=== PATIENT | female | born 2000 | race Caucasian/White ===

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

== ENCOUNTER 2021-03-07 18:39 | Emergency (ER) | payer MEDICAID ==
[~2021-03-07] VITALS: Ht 154.9 cm; Wt 63.0 kg
[2021-03-07] MEDS ORDERED: IV RINGERS SOLUTION,LACTATED 1,000 ML IV SCH (21:15)
[2021-03-07 21:18] VITALS: BP 134/80
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
[2021-03-07 22:15] LABS: BASO % 0 % (0-3); EOS % 1 % (0-3); HEMATOCRIT 35.3 % (36.0-47.0); HEMOGLOBIN 11.1 g/dL (12.0-15.5); LYMPH # 1.8 x10^3/uL (1.0-4.8); LYMPH % 48 % (24-48); MEAN CORPUSCULAR HEMOGLOBIN 24 pg (25-35); MEAN CORPUSCULAR HGB CONC 31 g/dL (31-37); MEAN CORPUSCULAR VOLUME 78 fL (79-100); MONO # 0.4 x10^3/uL (0.0-1.1); MONO % 11 % (0-9); NEUT # 1.6 x10^3uL (1.8-7.7); NEUT % 41 % (31-73); PLATELET COUNT 341 x10^3/uL (140-400); RED BLOOD COUNT 4.54 x10^6/uL (3.50-5.40); RED CELL DISTRIBUTION WIDTH 17.9 % (11.5-14.5); WHITE BLOOD COUNT 3.8 x10^3/uL (4.0-11.0)
[2021-03-07 22:35] LABS: CALCIUM 8.5 mg/dL (8.5-10.1); CREATININE 0.7 mg/dL (0.6-1.0); GFR 107.8; POTASSIUM 3.4 mmol/L (3.5-5.1)
[2021-03-07 22:41] LABS: ALBUMIN 4.1 g/dL (3.4-5.0); DIRECT BILIRUBIN 0.1 mg/dL (0.0-0.2); MAGNESIUM 2.6 mg/dL (1.8-2.4); TOTAL BILIRUBIN 0.4 mg/dL (0.2-1.0); TOTAL PROTEIN 7.6 g/dL (6.4-8.2)
--- NOTE | 2021-03-07 22:51 | EKG ---
[address] [address] Test Date: 2021-03-07 Test Time: 21:51:03 Pat Name: LO MEJIA Department: Room: Gender: F Supervisor Knitting: : 2000 Requested By: DIONTE BARLOW Order Number: [id number] Reading MD: Nahid Nuno Measurements Intervals [place] Rate: 75 P: MN: QRS: -25 QRSD: 78 T: -11 QT: 380 QTc: 427 Interpretive Statements SINUS RHYTHM ATRIAL PREMATURE COMPLEXES LEFTWARD AXIS LOW LIMB LEAD VOLTAGE T ABNORMALITY IN ANTEROSEPTAL LEADS Electronically Signed On 03-08-2021 14:26:51 FINANCIAL MANAGEMENT ANALYST by Nahid Nuno
== END 2021-03-08 00:54 | disposition home or self-care (01) ==
LOC: ER 18:39
DX: U07.1 COVID-19 (principal); R45.851 Suicidal ideations; F41.9 Anxiety disorder, unspecified; F31.9 Bipolar disorder, unspecified; F20.0 Paranoid schizophrenia; D50.9 Iron deficiency anemia, unspecified; E87.6 Hypokalemia; F19.10 Other psychoactive substance abuse, uncomplicated; J45.909 Unspecified asthma, uncomplicated; F17.210 Nicotine dependence, cigarettes, uncomplicated; F12.10 Cannabis abuse, uncomplicated; F15.10 Other stimulant abuse, uncomplicated; Z87.440 Personal history of urinary (tract) infections; Z88.8 Allergy status to other drugs, medicaments and biological substances
CPT/HCPCS: 36415; 80048; 80076; 82550; 83735; 84443; 85025; 87426; 93005; 99285; C9803; G0480; U0003; 99284

== ENCOUNTER 2021-05-18 21:44 | Emergency (ER) | payer MEDICAID ==
[~2021-05-18] VITALS: Ht 154.9 cm; Wt 61.7 kg
[2021-05-18 21:57] VITALS: BP 118/75
--- NOTE | 2021-05-18 22:13 | PHYS DOC ---
Past History Past Medical History: Anxiety, Asthma, Bronchitis, Depression, Schizophrenia, STD, UTI Additional Past Medical Histor: anorexia, urine regurg Past Surgical History: Tonsillectomy, Other Additional Past Surgical Histo: ear tubes, sx for urine regurg-FLAP OVER UTERUS Smoking: Cigarettes Alcohol Use: Sober Drug Use: Marijuana, Methamphetamine Social History Narrative: SOBER FROM DRUGS AND ETOH Adult General Chief Complaint Chief Complaint: WEAKNESS/GENERALIZED HPI HPI Patient is a 20-year-old female with a past medical history of asthma and anxiety/depression who presents endorsing approximately 3 months gestation with a chief complaint of some numbness and tingling on the right side has been going on a couple days. States she has had this before but has been a while. Denies any recent traumas, travels, illnesses, fevers, chest pain, shortness of breath, abdominal pain, nausea, vomiting, diarrhea. Denies any dysuria, hematuria, blood in the stool. Denies any vaginal bleeding, discharge or pain. Denies any history of STIs or concern of those. Review of Systems Review of Systems Review of systems otherwise unremarkable except noted in HPI Allergies Allergies Allergies Coded Allergies Type Severity Reaction Last Updated Verified oxybutynin Allergy Unknown 03/07/21 Yes Physical Exam Physical Exam Constitutional: Well developed, well nourished, no acute distress, non-toxic appearance. [] HENT: Normocephalic, atraumatic, bilateral external ears normal, oropharynx moist, no oral exudates, nose normal. [] Eyes: PERRLA, EOMI, conjunctiva normal, no discharge. [] Neck: Normal range of motion, no tenderness, supple, no stridor. [] Cardiovascular:Heart rate regular rhythm, no murmur [] Lungs & Thorax: Bilateral breath sounds clear to auscultation [] Abdomen: Bowel sounds normal, soft, no tenderness, no masses, no pulsatile masses. [] Skin: Warm, dry, no erythema, no rash. [] Back: No tenderness, no CVA tenderness. [] Extremities: No tenderness, no cyanosis, no clubbing, ROM intact, no edema. [] Neurologic: Alert and oriented X 3, normal motor function, normal sensory function, able to sit, stand and walk without issue, no focal deficits noted. [] Psychologic: Affect normal, judgement normal, mood normal. [] Current Patient Data Vital Signs Vital Signs Date Time Temp Pulse Resp B/P (MAP) Pulse Ox O2 Delivery O2 Flow Rate FiO2 05/18/21 21:57 98.2 68 18 118/75 (89) 97 Room Air Lab Results Laboratory Tests Test 05/18/21 21:02 POC Urine HCG, Qualitative hcg positive (Negative) EKG EKG [] Radiology/Procedures Radiology/Procedures [] Heart Score C/O Chest Pain: No Risk Factors: Risk Factors: DM, Current or recent (<one month) smoker, HTN, HLP, family history of CAD, obesity. Risk Scores: Risk Factors: DM, Current or recent (<one month) smoker, HTN, HLP, family history of CAD, obesity. Course & Med Decision Making Course & Med Decision Making Patient is a otherwise healthy 20-year-old female who presents with some intermittent tingling in her extremities Vital signs not concerning. Physical exam noted above. Patient alert, oriented repacker, smiling. EKG and troponin with a rate of 70, QRS of 82, QTc of 413, no STEMI in troponin normal. positive, urinalysis nonconcerning Discussed all findings with patient. Given community resource packet and contact information for local primary care physicians. Advised to follow-up on Thursday. Gave return precautions to the ED. Patient grateful, verbalized understanding and agreed with plan of discharge. Dragon Disclaimer Dragon Disclaimer This electronic medical record was generated, in whole or in part, using a voice recognition dictation system. Departure Departure: Impression: Primary Impression: Paresthesia Additional Impression: Condition: STABLE Referrals: PCP,DAYSI (PCP) SYLVIE CLARK Patient Instructions: ABCs of Additional Instructions: Fever coming into the emergency department tonight and allowing us to take care of you. Please read the attached information carefully to go over things we discussed. It is very important that you follow-up with your primary care physician as soon as you can update on your ED visit, and your . Please continue taking your vitamins. Please be sure to eat at least 3 nutritious meals daily. Please follow-up on Thursday with your primary care physician or call the 1 at the number provided or in the community resource packet given to you. Please come back with new or concerning symptoms as di scussed. Problem Qualifiers BETTY MCCALLUM MD May 18, 2021 22:13
--- NOTE | 2021-05-18 23:05 | EKG ---
[address] [address] Test Date: 2021-05-18 Test Time: 22:45:14 Pat Name: LO MEJIA Department: Room: Gender: F Senior Sql Server Developer: YAMINI : 2000 Requested By: BETTY MCCALLUM Order Number: [id number] Reading MD: Emigdio Reynolds Measurements Intervals [place] Rate: 70 P: 26 HI: 136 QRS: 19 QRSD: 82 T: 29 QT: 380 QTc: 413 Interpretive Statements SINUS RHYTHM NON SPECIFIC T WAVE CHANGES Electronically Signed On 05-19-2021 14:52:33 CDT by Emigdio Reynolds
[2021-05-18 23:08] LABS: BACTERIA,URINE 0 /HPF (0-FEW); CLARITY,URINE CLEAR; COLOR,URINE YELLOW; GLUCOSE,URINE NEG (NEG); NITRITE,URINE NEG (NEG); RBC,URINE 0 /HPF (0-2); SQUAMOUS EPITHELIAL CELL,UR MANY /LPF; UROBILINOGEN,URINE 0.2 mg/dL (0.2 mg/dL)
== END 2021-05-18 23:33 | disposition home or self-care (01) ==
LOC: ER 21:44
DX: O26.891 Other specified pregnancy related conditions, first trimester (principal); R20.2 Paresthesia of skin; O99.511 Diseases of the respiratory system complicating pregnancy, first trimester; J45.909 Unspecified asthma, uncomplicated; O23.41 Unspecified infection of urinary tract in pregnancy, first trimester; N39.0 Urinary tract infection, site not specified; O99.331 Smoking (tobacco) complicating pregnancy, first trimester; Z3A.12 12 weeks gestation of pregnancy; Z88.8 Allergy status to other drugs, medicaments and biological substances
CPT/HCPCS: 36415; 81001; 81025; 84484; 87086; 93005; 99284

== ENCOUNTER 2021-06-15 18:33 | Emergency (ER) | payer MEDICAID ==
[~2021-06-15] VITALS: Ht 154.9 cm; Wt 61.7 kg
[2021-06-15 18:33] VITALS: BP 101/67
--- NOTE | 2021-06-15 19:14 | PHYS DOC ---
Past History Past Medical History: Anxiety, Asthma, Bronchitis, Depression, Schizophrenia, STD, UTI Additional Past Medical Histor: anorexia, urine regurg (DREW ABREU APRN) Past Surgical History: Tonsillectomy, Other Additional Past Surgical Histo: ear tubes, sx for urine regurg-FLAP OVER UTERUS (DREW ABREU APRN) Smoking: Cigarettes Alcohol Use: Sober Drug Use: Marijuana, Methamphetamine (DREW ABREU APRN) General Adult EDM: Chief Complaint: SEXUALLY TRANSMITTED DISEASE HPI: HPI: Patient is a 20-year-old female who presents to the emergency department today for yellow/white vaginal discharge, and lesions on her labia. She feels like the area is inflamed. She Bantle by her ex-boyfriend that he has HSV-1. Patient is approximately 12 weeks . Her OB [facility] She is approximately 12 weeks . She denies any vaginal bleeding or pelvic pain. She denies any vaginal odor. (DREW ABREU APRN) Review of Systems: Review of Systems: GI: See HPI : See HPI Integument: See HPI (DREW ABREU APRN) Allergies: Allergies: Allergies Coded Allergies Type Severity Reaction Last Updated Verified oxybutynin Allergy Unknown 03/07/21 Yes (DREW ABREU APRN) Physical Exam: PE: Constitutional: Well developed, well nourished, no acute distress, non-toxic appearance. [] HENT: Normocephalic, atraumatic, bilateral external ears normal, oropharynx moist, no oral exudates, nose normal. [] Eyes: PERRL, EOMI, conjunctiva normal, no discharge. [] Neck: Normal range of motion, no tenderness, supple, no stridor. [] Cardiovascular:Heart rate regular rhythm, no murmur [] Lungs & Thorax: Bilateral breath sounds clear to auscultation [] Abdomen: Bowel sounds normal, soft, no tenderness, no masses, no pulsatile masses. [] Skin: Warm, dry, no erythema, no rash. [] Back: No tenderness, no CVA tenderness. [] Extremities: No tenderness, no cyanosis, no clubbing, ROM intact, no edema. [] Neurologic: Alert and oriented X 3, normal motor function, normal sensory function, no focal deficits noted. [] Psychologic: Affect normal, judgement normal, mood normal. [] (DREW ABREU APRN) Current Patient Data: Vital Signs: Vital Signs Date Time Temp Pulse Resp B/P (MAP) Pulse Ox O2 Delivery O2 Flow Rate FiO2 06/15/21 18:33 85 101/67 (78) 100 Room Air 06/15/21 18:33 16 (DREW ABREU APRN) EKG: EKG: [] (DREW ABREU APRN) Radiology/Procedures: Radiology/Procedures: [] (DREW ABREU APRN) Heart Score: C/O Chest Pain: N/A Risk Factors: Risk Factors: DM, Current or recent (<one month) smoker, HTN, HLP, family history of CAD, obesity. Risk Scores: Score 0 - 3: 2.5% MACE over next 6 weeks - Discharge Home Score 4 - 6: 20.3% MACE over next 6 weeks - Admit for Clinical Observation Score 7 - 10: 72.7% MACE over next 6 weeks - Early Invasive Strategies (DREW ABREU APRN) Course & Med Decision Making: Course & Med Decision Making Pertinent Labs and Imaging studies reviewed. (See chart for details) [] Patient resents to the emergency department today for labial lesions and vaginal discharge. Patient got notified by sexual partner that he has HSV 1. Patient does have several pink/red-colored vesicular-like lesions noted to her labia consistent with herpes. Patient's cervical os is closed. It does not appear friable. Patient does have green/white thin vaginal discharge. No vaginal odor noted. No cervical motion tenderness, no adnexal tenderness. Patient is seeking prophylactic treatment for gonorrhea and chlamydia and this was ordered. Patient will be treated for herpes simplex virus. Patient will be notified of her gonorrhea and Chlamydia testing when it becomes available in approximately 2 days. Denies of symptoms sexual intercourse for 14 days. I discussed with patient all findings and diagnostic testing as well as the need to follow-up with PCP for further evaluation and treatment or return to the ER i f any new or worsening symptoms. Strict return precautions were also discussed at length. Patient voiced understanding and agreement with the plan. Patient is hemodynamically stable at the time of disposition. (DREW ABREU APRN) Course & Med Decision Making Do not see or evaluate patient. And I discussed patient with ALLERGIST IMMUNOLOGIST. Generally agree with ALLERGIST IMMUNOLOGIST's work-up and disposition per note (BETTY MCCALLUM MD) Karlene Disclaimer: Dragon Disclaimer: This electronic medical record was generated, in whole or in part, using a voice recognition dictation system. (DREW ABREU APRN) Departure Departure: Impression: Primary Impression: Yeast infection Additional Impressions: Herpes genitalia Qualified Codes: A60.04 - Herpesviral vulvovaginitis Screening for STDs (sexually transmitted diseases) Disposition: HOME / SELF CARE / HOMELESS Condition: GOOD Referrals: PCP,NO (PCP) Patient Instructions: Herpes Simplex, Sexually Transmitted Diseases (STD) In Additional Instructions: You are seen in the emergency department today for STD testing. We tested you for gonorrhea and chlamydia and you will be notified of those results when they become available in approximately 2 days. You were prophylactically treated for those in the ER today. Please abstain from sexual intercourse for 14 days. If you are positive for any STD please notify your sexual partners. You were noted to have yeast on your swab which will be treated with topical miconazole. Your physical exam is consistent with herpes simplex virus which she will be treated with an antiviral. Please take as directed. You will need to follow-up with your RETREAD SUPERVISOR on Thursday. Return to the emergency department if you develop worsening of your symptoms, vaginal bleeding, abdominal pain, high fevers refractory to treatment, intractable nausea or vomiting. Scripts Miconazole Nitrate (MICATIN) 14 Gm Cream..g. 1 ANALISA TP 1X for YEAST for 7 Days, #28 GM 0 Refills Prov: DREW ABREU APRN 06/15/21 Acyclovir (ACYCLOVIR) 400 Mg Tablet 1 TAB PO TID for hsv for 10 Days, #30 TAB 0 Refills Prov: DREW ABREU APRN 06/15/21 DREW ABREU APRN Jun 15, 2021 19:14 BETTY MCCALLUM MD Jun 15, 2021 20:15
[2021-06-15] MEDS ORDERED: ACYC-12 PO (19:37)
[2021-06-15] MEDS ORDERED: cefTRIAXone IM 500 MG VIAL. IM ONE (19:45)
[2021-06-15] MEDS ORDERED: AZITHROMYCIN 250 MG TABLET. PO ONE (19:45)
[2021-06-15] MEDS ORDERED: MICO14CR2 TP (20:02)
[2021-06-15 20:15] LABS: CLARITY,URINE HAZY; COLOR,URINE YELLOW
[2021-06-15 20:16] LABS: BACTERIA,URINE MOD /HPF (0-FEW); GLUCOSE,URINE NEG (NEG); NITRITE,URINE NEG (NEG); SQUAMOUS EPITHELIAL CELL,UR MOD /LPF; UROBILINOGEN,URINE 0.2 mg/dL (0.2 mg/dL); YEAST,URINE PRESENT /HPF
[2021-06-17 12:11] LABS: CHLAMYDIA PROBE Negative (Negative)
== END 2021-06-15 20:29 | disposition home or self-care (01) ==
LOC: ER 18:33
DX: Z11.3 Encounter for screening for infections with a predominantly sexual mode of transmission (principal); O98.511 Other viral diseases complicating pregnancy, first trimester; A60.04 Herpesviral vulvovaginitis; O98.811 Other maternal infectious and parasitic diseases complicating pregnancy, first trimester; B37.9 Candidiasis, unspecified; O99.511 Diseases of the respiratory system complicating pregnancy, first trimester; J45.909 Unspecified asthma, uncomplicated; O99.341 Other mental disorders complicating pregnancy, first trimester; F20.9 Schizophrenia, unspecified; O99.331 Smoking (tobacco) complicating pregnancy, first trimester; O23.41 Unspecified infection of urinary tract in pregnancy, first trimester; N39.0 Urinary tract infection, site not specified; Z3A.12 12 weeks gestation of pregnancy; Z88.8 Allergy status to other drugs, medicaments and biological substances
CPT/HCPCS: 81001; 87077; 87086; 87491; 87591; 96372; 99284; J0696; Q0111